=== PATIENT | male | born 1985 | race Two or more races ===

== ENCOUNTER 2024-09-04 20:44 | Emergency (ER) | payer MEDICAID, OTHER ==
[~2024-09-04] VITALS: Ht 180.3 cm; Wt 85.0 kg
--- NOTE | 2024-09-04 22:06 | ED.PDOC ---
History of Present Illness HPI Comments 39 y/o M presents with relative for c/o left-eye redness for 2 days. 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 Patient is commented to have washed his eyes and used eyedrops to no relief or improvement. Patient endorses on no furt her relevant or pertinent past medical, surgical, or family Hx in addition to recent stress, injuries, sick contact, travel, or substance use/exposure. Patient denies having any headache, dizziness, lightheadedness, vision changes, fever, chills, or other associated symptoms or modifiers at this time. Chief Complaint: Eye Problem Time Seen by MD: 21:35 Reviewed Notes: Nurses Notes, Medications, Allergies Allergies: Coded Allergies: NO KNOWN ALLERGIES (Unverified , 09/04/24) Home Meds Active Scripts Gentamicin Sulfate (Gentamicin Sulfate) 0.3 % Lesley, 2 DROP LEFTEYE QID for 5 Days, #5 ML Prov:JAILYN PINTO MD 09/04/24 Information Source: Patient, Relative Mode of Arrival: Ambulatory Severity: Moderate Timing: Days Duration: Since onset Prehospital treatment: None Past Medical History PAST MEDICAL HISTORY: Denies Surgical History: Denies all surgeries Family History Family History: Unknown Social History Smoker: Non-Smoker Alcohol: Denies ETOH Use Drugs: Denies Drug Use Lives In: Home Constitutional: denies: chills, diaphoresis, fatigue, fever, malaise, sweats, weakness, others EENTM: reports: eye redness (left-side ); denies: blurred vision, double vision, ear bleeding, ear discharge, ear drainage, ear pain, ear ringing, eye pain, hearing loss, mouth pain, mouth swelling, nasal discharge, nose bleeding, nose congestion, nose pain, photophobia, tearing, throat pain, throat swelling, voice changes, others Respiratory: denies: cough, hemoptysis, orthopnea, SOB at rest, shortness of breath, SOB with excertion, stridor, wheezing, others Cardiovascular: denies: chest pain, dizzy spells, diaphoresis, Dyspnea on exertion, edema, irregular heart beat, left arm pain, lightheadedness, palpitations, PND, syncope, others Gastrointestinal: denies: abdomen distended, abdominal pain, blood streaked bowels, constipated, diarrhea, dysphagia, difficulty swallowing, hematemesis, melena, nausea, poor appetite, poor fluid intake, rectal bleeding, rectal pain, vomiting, others Genitourinary: denies: burning, dysuria, flank pain, frequency, hematuria, incontinence, penile discharge, penile sore, pain, testicle pain, testicle swelling, urgency, others Neurological: denies: dizziness, fainting, headache, left sided numbness, left sided weakness, numbness, paresthesia, pre-existing deficit, right sided numbness, right sided weakness, seizure, speech problems, tingling, tremors, weakness, others Musculoskeletal: denies: back pain, gout, joint pain, joint swelling, muscle pain, muscle stiffness, neck pain, others Integumetry: denies: bruises, change in color, change in hair/nails, dryness, laceration, lesions, lumps, rash, wounds, others Allergic/Immunocompromised: denies: Difficulty Healing, Frequent Infections, Hives, Itching, others Hematologic/Lymphatic: denies: anemia, blood clots, easy bleeding, easy bruising, swollen glands, others Endocrine: denies: excessive hunger, excessive sweating, excessive thirst, excessive urination, flushing, intolerance to cold, intolerance to heat, unexplained weight gain, unexplained weight loss, others Psychiatric: denies: anxiety, bipolar disorder, depression, hopeless, panic disorder, schizophrenia, sleepless, suicidal, others All Other Systems: Reviewed and Negative Physical Exam General Appearance: Moderate Distress HEENT: Eye Lid (L) (Redness) Neck: Full Range of Motion, Non-Tender, Normal, Normal Inspection Respiratory: Chest Non-Tender, Lungs Clear, No Accessory Muscle Use, No Respiratory Distress, Normal Breath Sounds Cardiovascular: No Edema, No JVD, No Murmur, No Gallop, Normal Peripheral Pulses, Regular Rate/Rhythm Breast Exam: Deferred Gastrointestinal: No Organomegaly, Non Tender, No Pulsatile Mass, Normal Bowel Sounds, Soft Genitalia: Deferred Pelvic: Deferred Rectal: Deferred Extremities: No calf tenderness, Normal capillary refill, Normal inspection, Normal range of motion, Non-tender, No pedal edema Musculoskeletal : Apperance: Normal Neurologic: Alert, housekeeper manager II-XII nml as Tested, No Motor Deficits, Normal Affect, Normal Mood, No Sensory Deficits Cerebellar Function: Normal Reflexes: Normal Skin: Dry, Normal Color, Warm Peripheral Pulses: 3+ Radial (R), 3+ Radial (L) Lymphatic: No Adenopathy Was a procedure done? Was a procedure done?: Yes Sedation Sedation?: No Foreign Body Removal Foreign body in: Eye Anesthetic: Other (Tetracaine) Procedure: Removed Informed consent obtained: Yes Risks/benefits/alt described: Yes Notes Pinpoint white foreign body was noted to the left conjunctiva and was removed using normal saline and cotton swab. Patient tolerated procedure well without any complications. Patient had symptomatic improvement. Procedure done by Marie Wong PA-C Differential Dx Considerations may include: conjunctivitis, foreign body X-Ray, Labs, Meds, VS Vital Signs Date Time Temp Pulse Resp B/P (MAP) Pulse Ox O2 Delivery O2 Flow Rate FiO2 09/04/24 23:01 65 16 97 Room Air 09/04/24 23:01 98.2 65 16 132/79 (96) 97 98.2 09/04/24 20:58 97.3 68 16 128/79 (95) 96 Current Medications Medications (Trade) Dose Ordered Sig/Idania Route Start Time Stop Time Status Last Admin Tetracaine HCl (Tetracaine 0.5% Opth Soln) 1 drop ONCE ONCE EACHEYE 09/04/24 23:15 09/04/24 23:16 DC 09/04/24 23:14 Patient alert. Left eye red. Vitals stable. Answering all questions. No foreign body in the eye. Flush the eye. Was given prescription of gentamicin antibiotic. Explained to the patient treatment plan. Was told to follow up with his primary care physician. Was told to come back if there is any problem. Time of 1ST Reevaluation: 22:05 Reevaluation 1ST: Improved Patient Education/Counseling: Diagnosis, Treatment Family Education/Counseling: Diagnosis, Treatment Departure 1 Departure Time of Disposition: 22:26 Impression: Primary Impression: Conjunctivitis Qualified Codes: H10.32 - Unspecified acute conjunctivitis, left eye Disposition: HOME / SELF CARE / HOMELESS Condition: Good e-Prescriptions Gentamicin Sulfate (Gentamicin Sulfate) 0.3 % Lesley 2 DROP LEFTEYE QID for 5 Days, #5 ML Prov: JAILYN PINTO MD 09/04/24 Discharged With: Self Critical Care Note Critical Care Time?: No Stability Stability form required: No Heart Score Heart Score: Heart Score Response (Comments) Value History N/A 0 EKG N/A 0 Age N/A 0 Risk Factors N/A 0 Troponin N/A 0 Total 0 I personally scribed for JAILYN PINTO MD ([email or web address]) on 09/04/24 at 22:06. Electronically submitted by Mu Prajapati ([email or web address]). JAILYN PINTO MD Sep 04, 2024 22:06 [facility] Sep 04, 2024 23:22
[2024-09-04] MEDS: FLUORESCEIN SOD OPTH TEST STRIP LEFTEYE ONE (22:08)
[2024-09-04] MEDS ORDERED: GENT0.3S10 LEFTEYE (22:27)
[2024-09-04] MEDS: GENTAMICIN OPTH sol 0.3% 5ml LEFTEYE ONE (22:30)
[2024-09-04 23:01] VITALS: BP 132/79; PULSE 65; RESP 16; TEMP 98.2; O2SAT 97
[2024-09-04] MEDS: TETRACAINE HCL 0.5% OPTH(EYE) SOLN 4ML EACHEYE ONE (23:14)
== END 2024-09-04 23:23 | disposition home or self-care (01) ==
LOC: ER 20:44
DX: H10.9 Unspecified conjunctivitis (principal)